=== PATIENT | female | born 1980 | race Hispanic/Latino ===

== ENCOUNTER 2020-02-23 11:59 | Emergency (ER) | payer SELFPAY ==
[~2020-02-23] VITALS: Ht 152.4 cm; Wt 72.6 kg
--- NOTE | 2020-02-23 13:51 | Diagnostic Imaging Report ---
EXAM: FOOT 3 VIEW LT - [facility] DATE: 02/23/2020 1:07 PM INDICATION: Trauma/injury COMPARISON: None FINDINGS: There is a spiral type, mildly displaced fracture involving the mid/distal proximal phalanx of the fourth digit. Obliquely oriented lucency identified within the proximal aspect of the proximal phalanx of the proximal phalanx of the fifth digit concerning for a nondisplaced fracture. No other acute fracture or dislocation is appreciated. No radiopaque foreign body is identified. IMPRESSION: Spiral type, mildly displaced fracture of the proximal phalanx of the fourth digit. Suspected nondisplaced fracture of the proximal phalanx of the fifth digit. Signed by: Dr. Pasha Yun MD on 02/23/2020 1:48 PM
--- NOTE | 2020-02-23 14:08 | Emergency Department Note ---
History of Present Illnes History of Present Illness Chief Complaint: Extremity Trauma/Pain History of Present Illness This is a 39 year old female . Chief Complaint Comment Reports that early this morning she hit her left fourth and fifth toe on the wall and they were bent away from her foot so she strai ghtened them back into place and now they are more painful especially to bear weight on that foot. Pt has bruising, swelling and pain to those toes. Pt has constant pain but worse when she tries to walk. Historian: Patient Arrival Mode: Car Onset (how long ago): day(s) (1) Location: LEFT FOOT Quality: SHARP Radiation: Denies non-radiation, Denies back, Denies neck, Denies extremity, Denies abdomen, Denies periumbilical, Denies flank, Denies proximal, Denies distal, Denies other Severity: moderate Onset quality: sudden Duration (how long): day(s) (1) Timing of current episode: constant Progression: waxing and waning Chronicity: new Context: Denies recent illness, Denies recent surgery, Denies recent immobilization, Denies recent travel, Denies trauma/injury, Denies new medications, Denies hx of DVT/PE, Denies non-compliance w/ medications, Denies other Relieving factors: none Exacerbating factors: none Associated symptoms: Reports denies other symptoms Treatments prior to arrival: none Past Medical/Family History Physician Review I have reviewed the patient's past medical and family history. Any updates have been documented here. Past Medical History Recent Fever: No Clinical Suspicion of Infectio: No New/Unexplained Change in Ment: No Past Medical History: None Past Surgical History: Cholecysctectomy Social History Smoking Cessation: Never Smoker Counseling Performed: No Alcohol Use: None Any Illegal Drug Use: No TB Exposure/Symptoms: No Physically hurt or threatened: No Family History Family history of heart diseas: No Other Any Pre-Existing Lines (PICC,: No Is patient up to date on immun: Yes Last Flu: UTD Last Pneumovax: none Review of Systems Review of Systems Constitutional: Reports no symptoms EENTM: Reports no symptoms Cardiovascular: Reports no symptoms Respiratory: Reports no symptoms Gastrointestinal: Reports no symptoms Genitourinary: Reports no symptoms Musculoskeletal: Reports as per HPI Integumentary: Reports no symptoms Neurological: Reports no symptoms Psychological: Reports no symptoms Endocrine: Reports no symptoms Hematological/Lymphatic: Reports no symptoms Physical Exam Related Data Allergies: Coded Allergies: No Known Allergies (Unverified , 02/23/20) Triage Vital Signs Vital Signs Date Time Temp Pulse Resp B/P (MAP) Pulse Ox O2 Delivery O2 Flow Rate FiO2 02/23/20 12:15 98.4 70 16 118/68 100 Vital signs reviewed: Yes Physical Exam CONSTITUTIONAL Constitutional: Present well-developed, Present well-nourished HENT HENT: Present normocephalic, Present atraumatic, Present oropharynx clear/moist, Present nose normal HENT L/R: Present left ext ear normal, Present right ext ear normal EYES Eyes: Reports PERRL, Reports conjunctivae normal NECK Neck: Present ROM normal PULMONARY Pulmonary: Present effort normal, Present breath sounds normal CARDIOVASCULAR Cardiovascular: Present regular rhythm, Present heart sounds normal, Present capillary refill normal, Present normal rate GASTROINTESTINAL Abdominal: Present soft, Present nontender, Present bowel sounds normal GENITOURINARY Genitourinary: Present exam deferred SKIN Skin: Present warm, Present dry MUSCULOSKELETAL Musculoskeletal: Present other (TENDERNESS LEFT FOURTH AND FIFTH TOE) NEUROLOGICAL Neurological: Present alert, Present oriented x 3, Present no gross motor or sensory deficits PSYCHOLOGICAL Psychological: Present mood/affect normal, Present judgement normal Results Imaging Imaging results reviewed: Yes Assessment & Plan Medical Decision Making MDM FX DISLOCATION Reassessment Reassessment time: 14:06 Reassessment BETER Assessment & Plan Final Impression: (1) Fracture of toe of left foot (2) Acute pain due to trauma Depart Disposition: HOME, SELF-CARE Last Vital Signs Date Time Temp Pulse Resp B/P (MAP) Pulse Ox O2 Delivery O2 Flow Rate FiO2 02/23/20 12:15 98.4 70 16 118/68 100 CYDNEY RODRIGUEZ MD Feb 23, 2020 14:08
== END 2020-02-23 14:25 | disposition home or self-care (01) ==
LOC: FSED 13:16
DX: S92.512A Displaced fracture of proximal phalanx of left lesser toe(s), initial encounter for closed fracture (principal); W22.01XA Walked into wall, initial encounter; Y93.01 Activity, walking, marching and hiking; Y92.008 Other place in unspecified non-institutional (private) residence as the place of occurrence of the external cause
CPT/HCPCS: 99283